=== PATIENT | female | born 1975 | race Caucasian/White ===

== ENCOUNTER 2017-01-16 06:12 | Emergency (ER) | payer OTHER ==
--- NOTE | ~2017-01-16 | CT4 ---
[facility] A Service of [facility] / [facility] RADIOLOGY TEXT RESULTS PATIENT: CLAUDIA GUSMAN LOCATION: [facility] : 79 UNIT #: [id number] AGE: [address]: Ilan Carson DO SEX: F ORDER DR: [id number] [facility] [address] [place], [place] [address] [id number] MR#: [id number] #: [id number] NAME: CLAUDIA GUSMAN. : 1975 SEX: F STUDY DATE/TIME: 01/16/2017 8:34 UNIT: REJI ROOM: STUDY DESCRIPTION: CT Abd and Pelv Wo Cont Attending Physician: Ilan Carson D.O. Ordering Physician: Ilan Carson D.O. Primary Care Physician: Primary Care Physician No MEDICAL IMAGING REPORT This report is preliminary unless electronic signature is present EXAM CT abdomen and pelvis without contrast INDICATIONS Generalized abdominal pain. Right-sided abdominal pain for the past week. PROCEDURE Unenhanced CT of the abdomen and pelvis COMPARISON 11/27/2012 FINDINGS Abdomen without contrast: Included lung bases are clear. The liver, spleen, kidneys, adrenal glands, pancreas, gallbladder unremarkable. Moderate colonic stool burden. Appendix is not well seen on this study. No pericecal inflammation. No abdominal fluid collection. Pelvis without contrast: No pelvic mass or fluid. No aggressive appearing bone lesion. IMPRESSION 1. No acute findings in the abdomen or pelvis. 2. The appendix is not well seen on this study but there is no pericecal inflammation. Dictated by... Surjit Martinez M.D. THIS IS AN ELECTRONICALLY VERIFIED REPORT Surjit Martinez M.D. at 01/17/2017 6:56 AM PRINCE/sherice [facility] A Service [facility] RADIOLOGY TEXT RESULTS PATIENT: CLAUDIA GUSMAN LOCATION: [facility] : 79 UNIT #: [id number] AGE: [address]: Ilan Carson DO SEX: F ORDER DR: TD: 01/16/2017 11:58 JOB #: [id number] MEDICAL IMAGING REPORT COPY
[~2017-01-16 06:12] MED LIST: BENZONATATE PO; NO MEDICATIONS; TAMIFLU75 M1 PO; VICODIN 5/1 TAB 5/50 PO
[2017-01-16 07:02] LABS: BASOPHIL# 0.1 X10e3 (0-0.3); BASOPHIL% 0.6 % (0-2.5); EOSINOPHIL# 0.2 X10e3 (0-0.7); EOSINOPHIL% 1.8 % (0.0-7.0); HEMATOCRIT 39.7 % (35.0-45.0); HEMOGLOBIN 13.2 gm/dL (12.0-16.0); LYMPHOCYTE# 3.1 X10e3 (1.0-3.5); LYMPHOCYTE% 34.4 % (17.0-45.0); MEAN CELL VOLUME 94.1 FL (83-96); MEAN CORPUSCULAR HEMOGLOBIN 31.2 PG (28-34); MEAN CORPUSCULAR HGB CONC 33.1 g/dL (30-36); MEAN PLATELET VOLUME 7.7 FL (6.5-11.5); MONOCYTE# 0.5 X10e3 (0-1.0); MONOCYTE% 5.9 % (3.0-12.0); NEUTROPHIL# 5.2 X10e3 (1.5-7.1); NEUTROPHIL% 57.3 % (40-75); PLATELET COUNT 354 X10e3 (140-420); RED BLOOD COUNT 4.22 X10e (3.90-5.30); RED CELL DISTRIBUTION WIDTH 13.3 % (11.0-15.5); WHITE BLOOD COUNT 9.1 X10e3 (4.0-10.5)
[2017-01-16 07:03] LABS: URINE APPEARANCE CLEAR; URINE BILIRUBIN NEG (NEG); URINE BLOOD TRACE (NEG); URINE COLOR YELLOW; URINE GLUCOSE NEG (NEG); URINE KETONE NEG (NEG); URINE LEUKOCYTE ESTERASE TRACE (NEG); URINE NITRATE NEG (NEG); URINE PROTEIN NEG (NEG); URINE SPECIFIC GRAVITY 1.028 (1.003-1.035); URINE UROBILINOGEN 0.2 MG/DL (NEG)
[2017-01-16 07:07] LABS: CULTURE INDICATED? YES; URINE BACTERIA AUWI 3+ (NEGATIVE); URINE SQUAMOUS EPITHELIAL CELL FEW /[HPF]
[2017-01-16 07:20] LABS: DIFF IND NO
[2017-01-16 07:28] LABS: ALBUMIN SERUM 3.8 g/dL (3.5-5.0); ALKALINE PHOSPHATASE 55 U/L (32-92); ALT (SGPT) 16 U/L (10-40); AST (SGOT) 14 U/L (10-42); BILIRUBIN, DIRECT 0.1 mg/dL (0.0-0.2); BILIRUBIN,INDIRECT 0.4 mg/dL (0.0-0.9); BILIRUBIN,TOTAL 0.5 mg/dL (0.2-2.0); BLOOD UREA NITROGEN 14 mg/dL (9-23); BUN/CREATININE RATIO 15.55; CALCIUM SERUM 9.1 mg/dL (8.4-10.2); CARBON DIOXIDE 23 mmol/L (22-31); CHLORIDE 108 mmol/L (100-111); CREATININE SERUM 0.9 mg/dL (0.6-1.4); GLOM FILT RATE Estimated ABOVE60 mL/min (>60); GLUCOSE FASTING 109 mg/dL (70-110); POTASSIUM 4.1 mmol/L (3.5-5.1); SODIUM 141 mmol/L (135-145)
[2017-01-20 09:13] LABS: CHLAMYDIA TRACH Not Detected (Not Detected); N GONOR Not Detected (Not Detected)
== END 2017-01-16 09:58 | disposition home or self-care (01) ==
LOC: CED 06:12
PROVIDERS: Nurse Practitioner Family
DX: N73.9 Female pelvic inflammatory disease, unspecified (principal); N72 Inflammatory disease of cervix uteri; Z90.49 Acquired absence of other specified parts of digestive tract; Z98.51 Tubal ligation status; F17.210 Nicotine dependence, cigarettes, uncomplicated; Z88.0 Allergy status to penicillin
CPT/HCPCS: 36415; 74176; 80048; 80076; 81003; 83690; 84703; 85025; 87086; 87491; 87591; 87808; 87905; 96365; 96375; 99284; J0696; J1885; J2405

== ENCOUNTER 2017-06-29 06:34 | Emergency (ER) | payer OTHER ==
[~2017-06-29] VITALS: Ht 170.2 cm; Wt 113.4 kg
== END 2017-06-29 07:37 | disposition home or self-care (01) ==
LOC: SED 06:34
DX: L03.312 Cellulitis of back [any part except buttock and flank] (principal); W57.XXXA Bitten or stung by nonvenomous insect and other nonvenomous arthropods, initial encounter; Z88.0 Allergy status to penicillin; Z98.51 Tubal ligation status; F17.200 Nicotine dependence, unspecified, uncomplicated
CPT/HCPCS: 99283